=== PATIENT | female | born 1955 | race Caucasian/White ===

== ENCOUNTER → 2017-03-07 | Outpatient (CLI) | payer MEDICARE, MEDICAID | LOC: FIMAGING 16:26 | PROVIDERS: ATTEND Podiatrist Primary Podiatric Medicine | DX: L97.421 Non-pressure chronic ulcer of left heel and midfoot limited to breakdown of skin (principal); M25.775 Osteophyte, left foot; S90.852A Superficial foreign body, left foot, initial encounter ==